=== PATIENT | female | born 2000 | race African-American/Black ===

== ENCOUNTER 2023-10-03 18:59 | Emergency (ER) | payer OTHER ==
[~2023-10-03] VITALS: Ht 172.7 cm; Wt 90.7 kg
[2023-10-03] MEDS ORDERED: NAPROXEN 250 MG TABLET ONE (22:29)
[2023-10-03] MEDS: NAPROXEN 250 MG TABLET PO ONE (22:31)
[2023-10-03] MEDS ORDERED: KETO10TA2 PO (23:58)
[2023-10-04 00:33] VITALS: BP 151/88; TEMP 97.8; O2SAT 100
== END 2023-10-04 00:33 | disposition home or self-care (01) ==
LOC: ER 19:22
DX: M25.561 Pain in right knee (principal); M25.551 Pain in right hip; Z60.2 Problems related to living alone; V09.3XXA Pedestrian injured in unspecified traffic accident, initial encounter; Y93.89 Activity, other specified; Y92.89 Other specified places as the place of occurrence of the external cause; Y99.8 Other external cause status
CPT/HCPCS: 70450-TC; 73502; 73562